=== PATIENT | female | born 1950 | race Asian ===

== ENCOUNTER 2017-11-19 15:59 | Outpatient (CLI) | payer MEDICARE, BC ==
--- NOTE | 2017-11-21 12:13 | XRAY Report ---
DATE OF SERVICE: 11/19/2017 THREE-VIEW RIGHT FOOT: 11/19/2017 CLINICAL INDICATION: Pain. FINDINGS: AP, lateral, oblique views of the right foot demonstrate mild osteoarthritis of the first metatarsophalangeal joint. There is no evidence of acute fracture. No radiopaque foreign body is se en in the soft tissues. IMPRESSION: Mild osteoarthritis. TD: 11/20/2017 09:40
== END 2017-11-19 16:00 | disposition home or self-care (01) ==
LOC: DI 15:59
PROVIDERS: ATTEND Family Medicine
DX: M19.071 Primary osteoarthritis, right ankle and foot (principal)

== ENCOUNTER 2017-11-21 16:36 | Outpatient (CLI) | payer MEDICARE, BC ==
--- NOTE | 2017-11-26 13:47 | Mammography Report ---
DATE OF SERVICE: 11/21/2017 DIGITAL SCREENING MAMMOGRAM: 11/21/2017 CLINICAL INDICATION: A 66-year-old with family history of breast cancer, history of benign excisiona l biopsy of the left breast for screening. COMPARISON: 10/2013, 09/2009, 09/2008, 09/2007. TECHNIQUE: Routine CC and MLO projections were obtained of the breasts. FINDINGS: The breasts demonstrate scattered fibroglandular densities bilaterally. Punctate, typical ly benign calcifications are present. Postoperative changes in the left breast are stable. No suspicious mass es, clustered microcalcifications, or regions of architectural distortion are identified. IMPRESSION: Benign findings. RECOMMENDATIONS: Routine annual screening unless otherwise clinically indicated. BIRADS category 2 - Benign findings. STANDARD QUALIFYING STATEMENTS 1. This examination was reviewed with the aid of Computed-Aided Detection (CAD). 2. A negative or benign imaging report should not delay biopsy if clinically suspicious findings are present. Consider surgical consultation if warranted. More than 5% of cancers are not identified by imaging. 3. Dense breasts may obscure an underlying neoplasm. TD: 11/22/2017 22:17
== END 2017-11-21 16:37 | disposition home or self-care (01) ==
LOC: DI 16:36
PROVIDERS: ATTEND Obstetrics & Gynecology
DX: Z12.31 Encounter for screening mammogram for malignant neoplasm of breast (principal); Z80.3 Family history of malignant neoplasm of breast
CPT/HCPCS: 77067

== ENCOUNTER 2022-05-22 15:31 | Outpatient (CLI) | payer MEDICARE, OTHER ==
--- NOTE | 2022-05-22 17:20 | DEXA Report ---
PROCEDURE: Dexa Spine and/or Hip INDICATIONS: POST MENOPAUSAL, LEFT HIP PAIN, LOW BACK PIAN TECHNIQUE: Dual energy x-ray absorptiometry (DXA) was performed on a [employer] System. Regions measur ed are the AP Spine, femoral neck, and if needed forearm. COMPARISON: None. FINDINGS: Lumbar Spine: Bone Mineral Density 1.158 g/cm/cm,T score -0.2. Left Hip: Bone Mineral Density 0.818 g/cm/cm,T score -1.5. Left Femoral Neck: Bone Mineral Density 0.682 g/cm/cm, T score -2.6. (T score greater or equal to -1.0: NORMAL) (T score from -1.1 to -2.4: OSTEOPENIA) (T score less than or equal to -2.5 to: OSTEOPOROSIS) Impression: Osteoporosis. Patients with diagnosis of osteoporosis or osteopenia should have regular bone mineral density assess ment. For those eligible for Medicare, routine testing is allowed once every 2 years. Testing frequ ency can be increased for patients who have rapidly progressing disease or for those who are receivin g medical therapy to restore bone mass. Reviewed by: Meño Porras MD on 05/22/2022 5:18 PM PDT Approved by: Meño Porras MD on 05/22/2022 5:18 PM PDT Station ID: [id number]
--- NOTE | 2022-05-23 10:35 | XRAY Report ---
PROCEDURE: Hip w/Pelvis 2-3V LT INDICATIONS: POST MENOPAUSAL, LEFT HIP PAIN, LOW BACK PIAN TECHNIQUE: AP pelvis with lateral view(s) of the left hip(s). COMPARISON: None. FINDINGS: Bones: No fractures or dislocations. Pelvic ring appears intact. No suspicious bony lesions. Mild symmetric hip joint space narrowing with articular osteophyte formation. Degenerative disc and facet disease involves inferior lumbar spine. Soft tissues: The visualized bowel gas pattern is normal. No suspicious soft tissue calcifications. IMPRESSION: Mild symmetric hip joint degeneration. Reviewed by: LESLYE Cantor on 05/23/2022 10:33 AM PDT Approved by: Cody Sewell MD on 05/23/2022 10:33 AM PDT Station ID: [id number]
--- NOTE | 2022-05-23 10:35 | XRAY Report ---
PROCEDURE: Lumbar Spine 2 View INDICATIONS: POST MENOPAUSAL, LEFT HIP PAIN, LOW BACK PIAN TECHNIQUE: 2 views of the lumbar spine were acquired. COMPARISON: None FINDINGS: Bones: 5 [id number] vertebrae are present. Mild dextro scoliosis centered at the L2 level. Mult ilevel disc height loss with endplate sclerosis and spurring, most notably and severe at the L3-L4 le papi. Mild L4-L5 and L5-S1 facet joint arthropathy. No vertebral body compression fractures. No susp icious bony lesions. Soft tissues: Overlying bowel gas pattern is normal. No suspicious soft tissue calcifications. IMPRESSION: Multilevel spondylosis. Reviewed by: LESLYE Cantor on 05/23/2022 10:34 AM PDT Approved by: Cody Sewell MD on 05/23/2022 10:34 AM PDT Station ID: [id number]
== END 2022-05-22 15:32 | disposition home or self-care (01) ==
LOC: DI 15:31
PROVIDERS: ATTEND Internal Medicine
DX: Z13.820 Encounter for screening for osteoporosis (principal); N95.8 Other specified menopausal and perimenopausal disorders; M81.0 Age-related osteoporosis without current pathological fracture; M51.36 Other intervertebral disc degeneration, lumbar region; M47.816 Spondylosis without myelopathy or radiculopathy, lumbar region; M47.817 Spondylosis without myelopathy or radiculopathy, lumbosacral region; M16.12 Unilateral primary osteoarthritis, left hip